=== PATIENT | male | born 1990 | race Two or more races ===

== ENCOUNTER 2022-06-05 22:44 | Emergency (ER) | payer OTHER ==
[~2022-06-05] VITALS: Ht 152.4 cm; Wt 93.4 kg
== END 2022-06-06 03:50 | disposition home or self-care (01) ==
LOC: ER 22:44
DX: S93.602A Unspecified sprain of left foot, initial encounter (principal); W18.30XA Fall on same level, unspecified, initial encounter; Y93.9 Activity, unspecified; Y92.59 Other trade areas as the place of occurrence of the external cause; Y99.9 Unspecified external cause status